=== PATIENT | female | born 1995 | race African-American/Black ===

== ENCOUNTER 2019-01-22 08:12 | Emergency (ER) | payer OTHER ==
[~2019-01-22] VITALS: Ht 165.1 cm; Wt 102.3 kg
[2019-01-22 08:17] VITALS: TEMP 98
[2019-01-22] MEDS ORDERED: FLEXERIL 1010 MG/TAB PO (08:35)
[2019-01-22 10:22] VITALS: BP 116/68; PULSE 64
== END 2019-01-22 10:33 | disposition home or self-care (01) ==
LOC: COL.ER 08:12
DX: M54.6 Pain in thoracic spine (principal); F17.210 Nicotine dependence, cigarettes, uncomplicated
CPT/HCPCS: J1885; J2270